=== PATIENT | female | born 1955 | race Caucasian/White ===

== ENCOUNTER → 2022-05-14 | Outpatient (CLI) | payer MEDICARE ==
--- NOTE | 2022-05-17 00:10 | DIREP ---
PROCEDURE:ABDOMINAL ULTRASOUND COMPARISON:None. INDICATIONS:HEPATIC STEATOSIS, ABD PAIN TECHNIQUE:High resolution sonographic examination was performed of the abdomen. FINDINGS: LIVER:Enlarged, measuring at least 20.0 cm craniocaudal. Diffusely increased in echogenicity and difficult to penetrate, consistent with hepatic steatosis. No focal hepatic lesion is identified. Hepatopetal flow in the portal vein. BILIARY:Small amount of dependent echogenic sludge in the gallbladder lumen. No shadowing gallstones. No gallbladder wall thickening or pericholecystic fluid. No biliary ductal dilatation. Common bile duct measures 3 mm. PANCREAS:Visualized portions of the head and body are unremarkable. The tail is obscured by bowel gas. RIGHT KIDNEY:Mildly enlarged, measuring 12.9 cm in length. Normal cortical thickness and echogenicity. No solid mass or hydronephrosis. LEFT KIDNEY:Mildly enlarged, measuring 12.6 cm in length. Normal cortical thickness and echogenicity. No solid mass or hydronephrosis. SPLEEN:Normal. Measures 10.6 cm craniocaudal. No focal splenic lesion. AORTA:Visualized portions are unremarkable. No aneurysm. 2.3 cm maximum diameter. INFERIOR VENA CAVA:Visualized portions are unremarkable. OTHER:Negative. No ascites. CONCLUSION: 1. Hepatomegaly with diffuse hepatic steatosis. No focal hepatic lesion. 2. Small amount of gallbladder sludge. No shadowing gallstones or sonographic evidence of acute cholecystitis. No biliary ductal dilatation. 3. Mild bilateral nephromegaly, which may be secondary to patient body habitus or diabetes. The kidneys are otherwise unremarkable. 4. Otherwise normal abdominal ultrasound. Dictated by: Pipo Ramos MD on 05/17/2022 at 00:04 AM
== END | disposition home or self-care (01) ==
LOC: RAD 09:13
PROVIDERS: ATTEND Internal Medicine Gastroenterology
DX: R16.0 Hepatomegaly, not elsewhere classified (principal); K76.0 Fatty (change of) liver, not elsewhere classified; E11.9 Type 2 diabetes mellitus without complications; R10.84 Generalized abdominal pain; E66.3 Overweight; Z12.11 Encounter for screening for malignant neoplasm of colon
CPT/HCPCS: 76700

== ENCOUNTER → 2022-06-02 | Outpatient (CLI) | payer MEDICARE ==
[~2022-06-02] MED LIST: LEXISCAN IV ONE
--- NOTE | 2022-06-02 15:59 | PCM.ECHO ---
APPROVED REPORT EXAM: Comprehensive 2D, Doppler, and color-flow Echocardiogram. Patient Location: OUT-PATIENT Indications Hypertension/HDD Chest Pain 2D Dimensions LVOT Diameter 2.24 (1.8-2.4cm) LVEF(%) 49.89 (>50%) M-Mode Dimensions RVDd 3.00 (2.1-3.2cm) Left Atrium(MM) 4.10 (2.5-4.0cm) IVSd 1.45 (0.7-1.1cm) Aortic Root 2.95 (2.2-3.7cm) LVDd 5.25 (4.0-5.6cm) Aortic Cusp Exc 1.60 (1.5-2.0cm) PWd 0.80 (0.7-1.1cm) MV EPSS 1.28 (<0.5cm) IVSs 1.85 cm FS (%) 32.15 % LVDs 3.55 (2.0-3.8cm) ESV(Teich) 53.34 ml PWs 1.55 cm LVEF(%) 59.95 (>50%) Volumes Biplane 2D LV Volumes Biplane 2D LA Volumes LVEDv A4C 106.88 mL LA ESV Index LVESv A4C 53.55 mL Aortic Valve AoV Peak Flip. 1.30 m/s AoV VTI 23.20 cm AO Peak GR. 6.90 mmHg AO Mean GR. 4.20 mmHg LVOT VTI 21.56 cm LVOT Peak Flip. 0.81 m/s MARY(VTI)/BSA 3.65 cm2/m2 MARY (VTI) 3.65 cm2 Mitral Valve MV E Velocity 0.50m/s MR Peak Gr. 10.75mmHg MV A Velocity 0.75m/s TDI Lateral E' P. V 0.07m/s Medial E' P. V 0.10m/s Pulmonary Valve PV Peak Velocity 0.80m/s PV Peak Grad. 2.80mmHg RVOT VTI 18.05cm Tricuspid Valve TR P. Velocity 1.95m/s RAP ESTIMATE 10.00mmHg TR Peak Gr. 15.28mmHg RVSP 25.28mmHg LEFT VENTRICLE The left ventricle is normal size. The left ventricular systolic function is normal. The left ventricular ejection fraction is within the normal range. There is normal left ventricular wall thickness. There is normal LV segmental wall motion. Mild diastolic dysfunction is present (impaired relaxation pattern). There is no ventricular septal defect visualized. No left ventricle thrombus noted on this study. LVEF is 65-70%. RIGHT VENTRICLE The right ventricle is normal size. The right ventricular systolic function is normal. There is normal right ventricular wall thickness. ATRIA The left atrium size is normal. The right atrium size is normal. The interatrial septum is intact with no evidence for an atrial septal defect. AORTIC VALVE The aortic valve is normal in structure. There is no aortic valvular stenosis. No aortic regurgitation is present. There is no aortic valvular vegetation. MITRAL VALVE The mitral valve is normal in structure. There is no mitral valve stenosis. Mild to moderate mitral regurgitation. There is no evidence of mitral valve vegetations. TRICUSPID VALVE The tricuspid valve is normal in structure. There is no tricuspid valve stenosis. Moderate tricuspid regurgitation. There is no tricuspid valve vegetations. PULMONIC VALVE Pulmonic valve is not well visualized. There is no pulmonic valvular stenosis. There is no pulmonic valvular regurgitation. GREAT VESSELS The aortic root is normal in size. Pulmonary artery is not well visualized. Aortic arch is not well visualized. IVC is not well visualized. PERICARDIUM There is no pericardial effusion. Other Information Study Quality: Fair <Conclusion> The left ventricular systolic function is normal. LVEF is 65-70%. Mild diastolic dysfunction is present (impaired relaxation pattern). Mild to moderate mitral regurgitation. Moderate tricuspid regurgitation. Electronically signed by : JOVITA SINGH. 06/02/2022 15:58:51
--- NOTE | 2022-06-03 00:23 | STRESS ---
DATE OF SERVICE: 06/02/2022 DICTATOR NAME: JOVITA SINGH DO DATE OF SERVICE: 06/02/2022 CARDIAC STRESS TEST INDICATION: Chest pain. FINDINGS: Baseline EKG shows normal sinus rhythm with a left anterior fascicular block and T-wave inversions in the anteroseptal leads suggestive of myocardial ischemia. Stress EKG shows normal sinus rhythm, unchanged from baseline. At the end of recovery, EKG shows normal sinus rhythm, unchanged from baseline. Baseline heart rate is 75 beats per minute and bal to 83 beats per minute during stress. At the end of recovery, the heart rate was 90 beats per minute. Baseline blood pressure is 147/89 and remained the same during stress. At the end of recovery, the blood pressure was 147/94. Blood pressure and heart rate were appropriate for stress. There were no significant symptoms noted during stress. There were no arrhythmias noted during stress. Anterior septal ischemia is noted baseline EKG and throughout stress and recovery. Nuclear images were obtained with a rest dose of 11.07 mCi technetium-99 sestamibi and a stress dose of 35.3 mCi technetium 99 sestamibi. Nuclear images reveal a moderate-sized area of reversible perfusion defect involving the anterior wall suggestive of myocardial ischemia. There is also a moderate-sized area of periinfarct ischemia involving the lateral wall. Left ventricular ejection fraction is 51%. EDV is 92 mL, ESV is 45 mL. The left ventricle is normal in size. Gated motion images showed normal wall motion across all segments of the left ventricle. TID is 1.3. There is no evidence of diaphragmatic attenuation artifact. IMPRESSION: 1. There is a moderate-sized area of reversible perfusion defect involving the anterior wall suggestive of myocardial ischemia. 2. There is a moderate-sized area of periinfarct ischemia involving the lateral wall. 3. This is an abnormal study. Recommend left heart catheterization. Sarah GARNETT D.O. DR: JED TID: [id number] RECEIPT: [id number]
== END | disposition home or self-care (01) ==
LOC: RAD 09:26 → EDUNIT# 10:00
PROVIDERS: ATTEND Internal Medicine Interventional Cardiology
DX: I08.1 Rheumatic disorders of both mitral and tricuspid valves (principal); I10 Essential (primary) hypertension; R07.9 Chest pain, unspecified; R06.02 Shortness of breath
CPT/HCPCS: 78452; 93306; 93017; J2785; A9500

== ENCOUNTER 2022-06-24 10:50 | Observation (INO) | payer MEDICARE ==
[2022-06-21 11:29] VITALS: BP 147/99
--- NOTE | 2022-06-21 12:12 | PCM.EKG ---
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
[2022-06-21 12:26] LABS: BASOPHIL # 0.1 10^3/uL (0.0-0.1); EOSINOPHIL # 0.3 10^3/uL (0.0-0.2); EOSINOPHIL % 4.3 % (0.0-5.0); LYMPHOCYTES # 1.81 10^3/uL1 (1.0-4.8); LYMPHOCYTES % 22.8 % (24.0-44.0); MEAN CORP HGB 29.7 pg (26-34); NEUTROPHIL # 4.8 10^3/uL (1.8-7.7); NEUTROPHILS % 59.8 % (41.0-85.0); RED CELL DISTRIBUTION WIDTH 13.1 % (11.5-14.5)
[2022-06-21 12:47] LABS: CARBON DIOXIDE 33.3 mmol/L (20.0-32)
[~2022-06-24] VITALS: Ht 170.2 cm; Wt 92.1 kg
[2022-06-24 10:50] VITALS: BP 157/102
[~2022-06-24 10:50] MED LIST changes: +ALBU1.25 NEB; +ASPI325T14 PO; +CARV3.12 PO; +CLOP75TA PO; +FENO145T17 PO; +FLAX100029 PO; +GLIM1TAB7 PO; +INUL2TAB4 PO; -LEXISCAN IV ONE; +MAGN400C PO; +METF500T17 PO; +NITR0.4T26 SL; +SUBLIMAZE ONE; +VERSED ONE; +XYLOCAINE ONE
[2022-06-24] MEDS: NS 1000ML 1,000 ML IV SCH ×2 (11:05→16:00)
[2022-06-24] MEDS ORDERED: NITROSTAT SL ONE (16:00)
[2022-06-24] MEDS ORDERED: APRESOLINE ONE (16:00)
[2022-06-24] MEDS ORDERED: VASOTEC IV ONE (16:02)
[2022-06-24] MEDS ORDERED: CARDENE-NACL 20 MG/200 ML SOLN 200 ML IV ONE (16:04)
[2022-06-24] MEDS ORDERED: HEPARIN ONE (16:20)
[2022-06-24] MEDS ORDERED: ASPIRIN ONE (17:05)
[2022-06-24] MEDS ORDERED: PLAVIX ONE (17:05)
[2022-06-24 17:40] VITALS: BP 164/90
--- NOTE | 2022-06-24 18:30 | NUR ---
admit note pt to rm 331 at 1740, recd report and assumed care. heart cath site dry and intact. VS taken, see special vs sheet. pt to remain flat until 1910. attempted to use bedpan and unable to void. chon care given
[2022-06-24] MEDS ORDERED: NITROSTAT SL PRN (23:30)
[2022-06-25 01:08] VITALS: BP 120/61
[2022-06-25] MEDS: NS 1000ML 1,000 ML IV SCH (02:00)
--- NOTE | 2022-06-25 02:47 | [facility] ---
DATE OF SERVICE: 06/24/2022 DICTATOR NAME: JOVITA SINGHDO CARDIAC CATHETERIZATION REPORT INDICATIONS: Abnormal cardiac stress test. This is a 66-year-old female who was evaluated in the outpatient setting where she underwent cardiac ischemic workup. Cardiac ischemic workup was noted to be abnormal and so she was set up for left heart catheterization after informed consents were obtained, PROCEDURES PERFORMED: * Severe stenosis (80-90%) of the proximal left anterior descending artery, status post successful percutaneous coronary intervention with a Resolute David 4.0 x 18 mm drug-eluting stent. * Severe stenosis (99%) of the distal right coronary artery, status post successful percutaneous coronary intervention with a Resolute [place] 4.5 x 26 mm drug-eluting stent. * Severe stenosis (80%) of the mid right coronary artery, status post successful percutaneous coronary intervention with a Resolute [place] 4.5 x 15 mm drug-eluting stent. * Selective coronary angiography. * Left ventriculography. * Hemostasis established using a 6-Liberian Angio-Seal. DESCRIPTION OF PROCEDURE: Access was obtained using a 4-Liberian micropuncture sheath to cannulate the right common femoral artery. The 4-Liberian sheath was then upsized to a 6-Liberian regular short sheath. Diagnostic angiography was then carried out using a Marisabel left catheter to engage the left main. The left main was noted to be angiographically normal. It bifurcates into a left anterior descending artery and the left circumflex artery. The left anterior descending artery is noted to have a proximal 80-90% lesion. It runs in the interventricular groove reaching the apex to form a type 2 LAD. It gives rise to 4 diagonal branches that are noted to have mild luminal irregularities. The remaining segments of the LAD is noted to have mild luminal irregularities. The left circumflex artery is noted to be codominant and with mild luminal irregularities. It gives rise to 3 obtuse marginal branches that are noted to have mild luminal irregularities. The Marisabel left catheter was then exchanged for a Marisabel right catheter, which was used to engage the RCA. RCA angiography revealed a dominant RCA with a 99% distal lesion and an 80% mid lesion. The RCA bifurcates distally to a right posterior descending artery and a right posterolateral artery. Both branches are noted to have mild luminal irregularities. The Marisabel right catheter was then exchanged for a pigtail catheter, which was used to cross the aortic valve into the left ventricle. Left ventriculography was performed. LVEF was noted to be 65%. LVEDP was noted to be 12. Upon pullback of the pigtail catheter, there was no gradient across the aortic valve. I then elected to first intervene in the right coronary artery. Initial attempt to use the WRP guide catheter proved difficult due to poor support. I then exchanged WRP catheter for an Amplatz left 1 catheter, which was used to engage the RCA. A Runthrough wire was then introduced into the RCA crossing the lesions in the mid to distal RCA. Predilation was then carried out of the mid to distal RCA lesion using a Euphora 2.0 x 12 mm compliant balloon followed by a Euphora 3.0 x 50 mm compliant balloon. A Resolute David 4.5 x 26 mm drug-eluting stent was then deployed on the distal RCA lesion. This was then followed by deployment of a Resolute [place] 4.5 x 15 mm drug-eluting stent on the mid RCA lesion. The stent balloon was then used to post-dilate the overlapping stent segment. Both stents were noted to be well opposed to the wall of the vessel with 0% residual stenosis. AVA 3 flow was maintained in the RCA. I then turned my attention to the left anterior descending artery. Using an EBU 3.5 guide catheter, the left main was successfully engaged. The Runthrough wire was then introduced into the LAD. The lesion in the proximal LAD was then treated by primary stenting using a Resolute [place] 4.0 x 18 mm drug-eluting stent. The stent was then postdilated using a 4.5 x 12 mm noncompliant balloon. The stent was noted to be well opposed to the wall of the vessel with 0% residual stenosis. The wire and the guide catheter was then subsequently removed and hemostasis was then established using a 6-Liberian Angio-Seal. The patient tolerated the procedure well. There were no complications. AVA 3 flow was maintained in the LAD as well as the RCA arteries. IMPRESSION: * Severe stenosis (80-90%) of the left anterior descending artery, status post successful percutaneous coronary intervention with a drug-eluting stent. * Severe stenosis (99%) of the distal RCA, status post successful percutaneous coronary intervention with a drug-eluting stent. * Severe stenosis (80%) of the mid RCA, status post successful percutaneous coronary intervention with a drug-eluting stent. * Selective coronary angiography. * Left ventriculography. * Left ventricular ejection fraction of 65%. * Left ventricular end-diastolic pressure of 12. * Hemostasis established using a 6-Liberian Angio-Seal. RECOMMENDATIONS: The patient will be started on dual antiplatelet therapy as well as statin therapy. Lifestyle modification factors have been strongly advised. She will be kept overnight for anticipated discharge in the morning. She has been instructed to follow up with me in the clinic in 2 weeks. Sarah GARNETT D.O. DR: PRASHANT ROPER: [phone] RECEIPT: [id number]
[2022-06-25 04:46] VITALS: BP 144/73
[2022-06-25 09:00] VITALS: BP 135/86
[2022-06-25] MEDS ORDERED: COREG PO SCH (09:00)
[2022-06-25] MEDS ORDERED: GLUCOPHAGE PO SCH (09:00)
[2022-06-25] MEDS ORDERED: TRICOR PO SCH (09:00)
[2022-06-25] MEDS ORDERED: AMARYL PO SCH ×2 (09:00)
[2022-06-25] MEDS ORDERED: PLAVIX PO SCH (09:00)
[2022-06-25] MEDS ORDERED: MAG-OX PO SCH (09:00)
[2022-06-25] MEDS ORDERED: ASPIRIN EC PO SCH (09:00)
[2022-06-25] MEDS ORDERED: ASPI-1007 PO (09:23)
[2022-06-25] MEDS ORDERED: ATOR40TA PO (09:23)
--- NOTE | 2022-06-25 09:26 | PRM.DC ---
Discharge Summary Date of Discharge: Jun 25, 2022 Time of Request to Discharge: 09:24 Hospital Course This is a 66-year-old female who was evaluated in the outpatient setting where she underwent cardiac ischemic workup. Cardiac ischemic workup was noted to be abnormal and so she was set up for left heart catheterization after informed consents were obtained. Left heart catheterization performed yesterday: 1. Severe stenosis (80-90%) of the proximal left anterior descending artery, status post successful percutaneous coronary intervention with a Resolute [place] 4.0 x 18 mm drug-eluting stent. 2. Severe stenosis (99%) of the distal right coronary artery, status post successful percutaneous coronary intervention with a Resolute David 4.5 x 26 mm drug-eluting stent. 3. Severe stenosis (80%) of the mid right coronary artery, status post successful percutaneous coronary intervention with a Resolute David 4.5 x 15 mm drug-eluting stent. 4. Selective coronary angiography. 5. Left ventriculography. 6. Hemostasis established using a 6-Belarusian Angio-Seal. General: Alert, Oriented X3, Cooperative HEENT: Atraumatic, PERRLA, EOMI Neck: Supple, No JVD, No thyromegaly Lungs: Clear to auscultation, Normal air movement Heart: Regular rate, Normal S1, Normal S2 Abdomen: Normal bowel sounds, Soft, No tenderness Extremities: No clubbing, No cyanosis, No edema Neuro: Normal gait, Normal speech, Strength at 5/5 X4 ext Scheduled Albuterol Sulfate (Albuterol Sulfate), 1 VIAL NEB Q6, (Reported) Aspirin (Lo-Dose Aspirin Ec), 81 MG PO DAILY Atorvastatin 40MG (Lipitor 40MG), 40 MG PO HS Carvedilol 3.125MG (Coreg 3.125MG), 1 TAB PO BID, (Reported) Clopidogrel Bisulfate (Clopidogrel), 1 TAB PO DAILY, (Reported) Fenofibrate Nanocrystallized (Fenofibrate), 1 TAB PO DAILY, (Reported) Flaxseed Oil (Flaxseed), 1,000 MG PO BID, (Reported) Glimepiride (Glimepiride), 1 TAB PO DAILY, (Reported) Inulin (Fiber Gummies), 4 TAB PO BID, (Reported) Magnesium Oxide (Magnesium), 1 CAP PO BID, (Reported) Metformin Hcl (Metformin Hcl), 2 TAB PO BID, (Reported) Nitroglycerin (Nitroglycerin), 1 TAB SL PRN, (Reported) Discontinued Medications Aspirin (Aspirin), 1 TAB PO DAILY, (Reported) Discontinued Reason: Discontinue Sepsis Evaluation @ Discharge 06/25/22 04:48 Review of Systems Constitutional: denies no symptoms reported, denies see HPI, denies chills, denies diaphoresis, denies fever, denies malaise, denies weakness, denies other EENTM: denies no symptoms reported, denies see HPI, denies eye pain, denies blurred vision, denies tearing, denies double vision, denies ear pain, denies ear discharge, denies nose pain, denies nose congestion, denies throat pain, denies throat swelling, denies mouth pain, denies mouth swelling, denies other Respiratory: denies no symptoms reported, denies see HPI, denies cough, denies orthopnea, denies shortness of breath, denies stridor, denies wheezing, denies other Cardiovascular: denies no symptoms reported, denies see HPI, denies chest pain, denies edema, denies palpitations, denies syncope, denies other Gastrointestinal: denies no symptoms reported, denies see HPI, denies abdominal pain, denies constipation, denies diarrhea, denies nausea, denies vomiting, denies other Musculoskeletal: denies no symptoms reported, denies see HPI, denies back pain, denies gout, denies joint pain, denies joint swelling, denies muscle pain, denies muscle stiffness, denies neck pain, denies other Psychiatric/Neurological: denies no symptoms reported, denies see HPI, denies anxiety, denies depressed, denies emotional problems, denies headache, denies numbness, denies paresthesia, denies pre-existing deficit, denies seizure, denies tingling, denies tremors, denies weakness, denies other Plan Assessment * Severe stenosis (80-90%) of the left anterior descending artery, status post successful percutaneous coronary intervention with a drug-eluting stent. * Severe stenosis (99%) of the distal RCA, status post successful percutaneous coronary intervention with a drug-eluting stent. * Severe stenosis (80%) of the mid RCA, status post successful percutaneous coronary intervention with a drug-eluting stent. * Selective coronary angiography. * Left ventriculography. * Left ventricular ejection fraction of 65%. * Left ventricular end-diastolic pressure of 12. * Hemostasis established using a 6-Belarusian Angio-Seal. RECOMMENDATIONS: The patient will be started on dual antiplatelet therapy as well as statin therapy. Lifestyle modification factors have been strongly advised. The patient will be discharged home today. She has been instructed to follow up with me in 1-2 weeks PAVAN VEGA APRN, NP Jun 25, 2022 09:26 JOVITA SINGH DO Jun 25, 2022 18:25
[2022-06-25] MEDS ORDERED: TYLENOL PO PRN (09:30)
--- NOTE | 2022-06-25 10:51 | NUR ---
ROOM AIR CHALLENGE - Umer was on room air when RT arrived at 1035am; umer stated she took it off to blow her nose; Spo2 at that time was 84%, hr 73, rr 18; pat had an spo2 of 84% on room air while at rest; pat was placed back on 2lpm nc, spo2 bal to 91% Addendum: 06/25/22 at 1053 by Latonia Reeves RRT, Contract RT Amended: Links added.
[2022-06-25 15:25] VITALS: BP 144/73
[2022-06-25] MEDS ORDERED: LIPITOR PO SCH (21:00)
== END 2022-06-25 15:25 | disposition home or self-care (01) ==
LOC: SDC 10:50 → INTOOBSV 17:35 → MS 17:35
PROVIDERS: ADMIT Internal Medicine Interventional Cardiology; ATTEND Internal Medicine Interventional Cardiology
DX: I25.10 Atherosclerotic heart disease of native coronary artery without angina pectoris (principal); I22.2 Subsequent non-ST elevation (NSTEMI) myocardial infarction; I70.213 Atherosclerosis of native arteries of extremities with intermittent claudication, bilateral legs; E11.59 Type 2 diabetes mellitus with other circulatory complications; I87.2 Venous insufficiency (chronic) (peripheral); E78.5 Hyperlipidemia, unspecified; E66.9 Obesity, unspecified; F41.8 Other specified anxiety disorders; J43.9 Emphysema, unspecified; I10 Essential (primary) hypertension; E78.00 Pure hypercholesterolemia, unspecified; F43.10 Post-traumatic stress disorder, unspecified; F17.200 Nicotine dependence, unspecified, uncomplicated; Z79.899 Other long term (current) drug therapy; Z79.82 Long term (current) use of aspirin
CPT/HCPCS: 80053; 85025; 36415; 85610; 85730; 93005; 93458; 82948; 99153; 99152; J7030 ×2; J1644 ×2; C1894 ×3; C1769 ×2; J0360; J2250; J3010; C9600; C1760; Q9967; G0378 ×2; J3490 ×2; C1887

== ENCOUNTER 2022-06-30 07:34 | Emergency (ER) | payer MEDICARE ==
[2022-06-30 07:34] VITALS: BP 158/112
[~2022-06-30 07:34] MED LIST changes: +ASPI-1007 PO; +ATOR40TA PO; -SUBLIMAZE ONE; -VERSED ONE; -XYLOCAINE ONE
[2022-06-30] MEDS ORDERED: MORPHINE SULFATE IV STA ×2 (07:48→10:53)
[2022-06-30] MEDS ORDERED: TRANDATE IV ONE (07:55)
[2022-06-30] MEDS ORDERED: MORPHINE SULFATE ONE ×2 (07:55→10:52)
[2022-06-30] MEDS ORDERED: ZOFRAN ONE (07:55)
[2022-06-30] MEDS ORDERED: AFRIN- Non-Preferred NS ONE (07:57)
[2022-06-30] MEDS ORDERED: TRANDATE IV PRN (08:00)
[2022-06-30] MEDS ORDERED: AFRIN NS ONE (08:00)
[2022-06-30] MEDS ORDERED: ZOFRAN IV PRN (08:00)
[2022-06-30 08:12] LABS: MEAN CORP HGB 30.1 pg (26-34); RED CELL DISTRIBUTION WIDTH 13.1 % (11.5-14.5)
--- NOTE | 2022-06-30 08:16 | ER.PDOC ---
General Chief Complaint: Requesting Medical Care Stated Complaint: NOSEBLEED TRAVEL OUT OF US: No Time seen by MD: 07:45 Source: patient Exam Limitations: no limitations History of Present Illness Initial Comments 66-year-old female comes here with significant nasal bleeding. The nasal bleeding is more from the left nostril but it is taking place on the right as well. No fever and no chills. Distant history of tobacco abuse. Patient is on Plavix. The patient denies any previous history of nasal bleeding. She she denies any trauma. Denies any nose picking. No other complaint. Symptoms are severe and acute and progressive. Stopped by leaning forward also pressure on her nose. Allergies: Coded Allergies: codeine (Verified Allergy, Intermediate, unknown, 06/21/22) Home Meds Active Scripts Aspirin (LO-DOSE ASPIRIN EC) 81 Mg Tablet.dr, 81 MG PO DAILY for 30 Days, #30 Prov:PAVAN VEGA APRN MANUSCRIPT READER 06/25/22 Atorvastatin 40MG (LIPITOR 40MG) 40 Mg Tablet, 40 MG PO HS for 30 Days, #30 TAB Prov:PAVAN VEGA APRN MANUSCRIPT READER 06/25/22 Reported Medications Inulin (Fiber Gummies) 2 Gram Tab.chew, 4 TAB PO BID for 30 Days, #60 TAB 0 Refills 06/21/22 Flaxseed Oil (FLAXSEED) 1,000 Mg Capsule, 1000 MG PO BID, CAPSULE 06/21/22 Albuterol Sulfate (ALBUTEROL SULFATE) 1.25 Mg/3 Ml Vial.neb, 1 VIAL NEB Q6, #150 MILLILITER 06/21/22 Metformin Hcl (METFORMIN HCL) 500 Mg Tablet, 2 TAB PO BID, #60 TAB 3 Refills 06/21/22 Glimepiride (GLIMEPIRIDE) 1 Mg Tablet, 1 TAB PO DAILY, #30 TAB 5 Refills 06/21/22 Clopidogrel Bisulfate (CLOPIDOGREL) 75 Mg Tablet, 1 TAB PO DAILY, #90 TAB 1 Refill 06/21/22 Magnesium Oxide (MAGNESIUM) 400 Mg Capsule, 1 CAP PO BID for 30 Days, #60 CAP 0 Refills 06/21/22 Fenofibrate Nanocrystallized (FENOFIBRATE) 145 Mg Tablet, 1 TAB PO DAILY, #30 TAB 5 Refills 06/21/22 Carvedilol 3.125MG (COREG 3.125MG) 3.125 Mg Tablet, 1 TAB PO BID, #180 TAB 1 Refill 06/21/22 Nitroglycerin (NITROGLYCERIN) 0.4 Mg Tab.subl, 1 TAB SL PRN for chest pain, #25 TAB 0 Refills 1st sign of attack; may repeat every 5 mins; if pain persists after 3 in 15 min, medical attention is recommended 06/21/22 Discontinued Reported Medications Aspirin (ASPIRIN) 325 Mg Tablet, 1 TAB PO DAILY, #30 TAB 5 Refills 06/21/22 Past Medical History Medical History: coronary artery disease, heart attack, hypertension Surgical History: cardiac cath LMP (females 10-50): N/A Not applicalbe Family History Significant Family History: no pertinent family hx Social History Smoking: quit greater than 1 year Alcohol Use: none Drug Use: marijuana Reviewed Nursing Reviewed: Vital Signs, Abn. Noted, Nursing Assessment Review of Systems Constitutional: denies no symptoms reported, denies see HPI, denies chills, de nies diaphoresis, denies fever, denies malaise, denies weakness, denies other EENTM: denies no symptoms reported, denies see HPI, denies eye pain, denies blurred vision, denies tearing, denies double vision, denies ear pain, denies ea r discharge, denies nose pain, denies nose congestion, denies throat pain, denies throat swelling, denies mouth pain, denies mouth swelling, denies other Respiratory: denies no symptoms reported, denies see HPI, denies cough, denies orthopnea, denies shortness of breath, denies stridor, denies wheezing, denies other Cardiovascular: denies no symptoms reported, denies see HPI, denies chest pain, denies edema, denies palpitations, denies syncope, denies other Gastrointestinal: denies no symptoms reported, denies see HPI, denies abdominal pain, denies constipation, denies diarrhea, denies nausea, denies vomiting, denies other Genitourinary: denies no symptoms reported, denies see HPI, denies discharge, denies dysuria, denies frequency, denies hematuria, denies pain, denies other Musculoskeletal: denies no symptoms reported, denies see HPI, denies back pain, denies gout, denies joint pain, denies joint swelling, denies muscle pain, denies muscle stiffness, denies neck pain, denies other Skin: denies no symptoms reported, denies see HPI, denies change in color, denies change in hair/nails, denies dryness, denies lesions, denies lumps, denies rash, denies other Psychiatric/Neurological: denies no symptoms reported, denies see HPI, denies anxiety, denies depressed, denies emotional problems, denies headache, denies numbness, denies paresthesia, denies pre-existing deficit, denies seizure, denies tingling, denies tremors, denies weakness, denies other Hematologic/Lymphatic: denies no symptoms reported, denies see HPI, denies anemia, denies blood clots, denies easy bleeding, denies easy bruising, denies swollen glands, denies other Immunological/Allergic: denies no symptoms reported, denies see HPI, denies food allergy, denies grass allergy, denies mold allergy, denies pollen allergy, denies HIV/AIDS, denies transplant All Other Systems: Reviewed and Negative Physical Exam General Appearance: Anxious, Moderate Distress EENT: eyes nml inspection, epistaxis, other (Significant epistaxis. Left more than right. Acute. Bright red blood.) Neck: Non-Tender, Full Range of Motion Respiratory: chest non-tender, lungs clear, normal breath sounds, no respiratory distress, no accessory muscle use CVS: reg rate & rhythm, no murmur, no gallop, pulses nml, nml capillary refill Gastrointestinal: Normal Bowel Sounds, No Organomegaly, No Pulsatile Mass, Non Tender Back: Normal Inspection, No CVA Tenderness, No Vertebral Tenderness Neurologic/Psychiatric: legend maker II-XII NML as Tested, No Motor/Sensory Deficits, Alert, Normal Mood/Affect Skin: Normal Color, Warm/Dry Lymphatic: No Adenopathy Results/Orders Results/Orders Orders - JASON HOPPER MD Cbc W/O Diff (06/30/22 07:46) Basic Metabolic Panel (06/30/22 07:46) PT (06/30/22 07:46) Partial Thromboplastin Time. (06/30/22 07:46) Labetalol Hcl (Trandate) (06/30/22 08:00) Morphine Sulfate (Morphine Sulfate) (06/30/22 07:48) Ondansetron Hcl/Pf (Zofran) (06/30/22 08:00) Ondansetron Hcl/Pf (Zofran) (06/30/22 07:55) Labetalol Hcl (Trandate) (06/30/22 07:55) Morphine Sulfate (Morphine Sulfate) (06/30/22 07:55) Oxymetazoline Hcl (Afrin) (06/30/22 08:00) Oxymetazoline Hcl (Afrin- Non-Preferred) (06/30/22 07:57) Ct Facial Bones Wo Contrast (06/30/22 08:19) Diph,Pertuss(Acell),Tet Vac/Pf (Boostrix (06/30/22 08:30) Diph,Pertuss(Acell),Tet Vac/Pf (Boostrix (06/30/22 08:38) Amoxicillin/Potassium Clav (Augmentin 87 (06/30/22 09:30) Amoxicillin/Potassium Clav (Augmentin 87 (06/30/22 09:31) Vital Signs Date Time Temp Pulse Resp B/P (MAP) Pulse Ox O2 Delivery O2 Flow Rate FiO2 06/30/22 07:34 98.7 64 18 06/30/22 07:34 98.7 69 18 88 06/30/22 07:34 98.7 64 18 158/112 (127) 88 Room Air* 0 21 06/25/22 09:34 73 Administered Medications Medications (Trade) Dose Ordered Sig/Marco Route PRN Reason Start Time Stop Time Status Last Admin Dose Admin Amoxicillin/ Clavulanate Potassium (Augmentin 875mg) 1 each BID ONCE PO 06/30/22 09:30 06/30/22 09:31 DC 06/30/22 09:36 1 EACH Diphtheria/ Tetanus/Acell Pertussis (Boostrix) 0.5 ml ONCE ONCE IM 06/30/22 08:30 06/30/22 08:31 DC 06/30/22 08:45 0.5 ML Labetalol HCl (Trandate) 20 mg Q4H PRN IV HYPERTENSION 06/30/22 08:00 07/30/22 07:59 06/30/22 08:07 20 MG Morphine Sulfate (Morphine Sulfate) 4 mg STAT STAT IV 06/30/22 07:48 06/30/22 07:50 DC 06/30/22 08:05 4 MG Ondansetron HCl (Zofran) 4 mg Q4H PRN IV NAUSEA / VOMITING 06/30/22 08:00 07/30/22 07:59 06/30/22 08:07 4 MG Oxymetazoline HCl (Afrin) 3 sprays OT ONCE NS 06/30/22 08:00 06/30/22 08:01 DC 06/30/22 08:07 3 SPRAYS Laboratory Tests Test 06/30/22 08:06 White Blood Count 9.2 10^3/uL (4.5-11.0) Red Blood Count 5.82 10^6/uL (4.00-5.20) H Hemoglobin 17.5 g/dL (12.0-15.0) H Hematocrit 56.0 % (36.0-46.0) H Mean Corpuscular Volume 96.2 fL (78-100) Mean Corpuscular Hemoglobin 30.1 pg (26-34) Mean Corpuscular Hemoglobin Concent 31.3 g/dL (33-36.5) L Red Cell Distribution Width 13.1 % (11.5-14.5) Platelet Count 321 10^3/uL (150-400) Mean Platelet Volume 9.6 fL (7.8-11.0) Prothrombin Time 10.4 SEC (9.1-11.5) Prothrombin Time INR (Non-Therap) 1.0 Activated Partial Thromboplast Time 23.2 SEC (22.5-33.1) Sodium Level 137 mmol/L (132-145) Potassium Level 4.5 mmol/L (3.6-5.2) Chloride Level 103.0 mmol/L (96-109) Carbon Dioxide Level 30.2 mmol/L (20.0-32) Glucose Level 184 mg/dL (70-110) H Blood Urea Nitrogen 22 mg/dL (7-18) H Creatinine 0.82 mg/dL (0.59-1.40) Calcium Level 9.2 mg/dL (8.4-10.5) Anion Gap 8.3 Estimated GFR () 84.7 (>/=60) Est GFR (CKD-EPI)(Non-Afr Moroccan) 70.0 (>/=60) BUN/Creatinine Ratio 26.0 Progress Progress Nose bleeding has stopped after by nostril tampons applied. A friend's right applied also. Tetanus shot given. Augmentin will be given. Will need ENT for Nasal mass evaluation. Discharge home. ROCEDURE:CT MAXILLOFACIAL W/O CONTRAST COMPARISON:None. INDICATIONS:new onset nasal bleeding, old HX of tobacco TECHNIQUE:Axial images were obtained through the facial bones with coronal reconstructions from source images. FINDINGS: GLOBES:Normal. EXTRAOCULAR MUSCLES:Normal. OPTIC NERVES:Normal. LACRIMAL GLANDS:Normal. MAXILLARY SINUSES:Minimal left maxillary sinus mucosal thickening and small air-fluid level. ETHMOID SINUSES:Normal. SPHENOID SINUSES:Mild left anterior debris and small air-fluid level. FRONTAL SINUSES:Normal. OSTIOMEATAL COMPLEXES:Patent. NASAL SEPTUM:Leftward nasal septal deviation with left-sided spur and mucosal apposition. OTHER:Soft tissue density in the left nares adjacent to middle and inferior turbinates. No osseous destructive changes. CONCLUSION: 1. Debris/hemorrhage in the region of the left turbinates. Mass not totally excluded. 2. Small air-fluid levels in the left maxillary and left sphenoid sinuses. ER DEPART Departure Time of Disposition: 09:17 Disposition: 01 HOME / SELF CARE / HOMELESS Impression: Primary Impression: Epistaxis Additional Impression: Nasal cavity mass Condition: Improved Referrals: PCP,UNKNOWN (PCP) PRIMARY CARE PROVIDER Additional Instructions: Sleep at 30-45 degree angle over the next few days Take all prescribed medication as directed. Nasal tampon comes out in 48 hours See your doctor tomorrow morning You will be set up for appointment with ENT Return to the hospital if any new symptoms develop Duration or Time Spent with Pa: 45 Problem Qualifiers JASON HOPPER MD Jun 30, 2022 08:16
[2022-06-30 08:25] LABS: CARBON DIOXIDE 30.2 mmol/L (20.0-32)
[2022-06-30] MEDS ORDERED: BOOSTRIX IM ONE ×2 (08:30→08:38)
--- NOTE | 2022-06-30 09:12 | DIREP ---
PROCEDURE:CT MAXILLOFACIAL W/O CONTRAST COMPARISON:None. INDICATIONS:new onset nasal bleeding, old HX of tobacco TECHNIQUE:Axial images were obtained through the facial bones with coronal reconstructions from source images. FINDINGS: GLOBES:Normal. EXTRAOCULAR MUSCLES:Normal. OPTIC NERVES:Normal. LACRIMAL GLANDS:Normal. MAXILLARY SINUSES:Minimal left maxillary sinus mucosal thickening and small air-fluid level. ETHMOID SINUSES:Normal. SPHENOID SINUSES:Mild left anterior debris and small air-fluid level. FRONTAL SINUSES:Normal. OSTIOMEATAL COMPLEXES:Patent. NASAL SEPTUM:Leftward nasal septal deviation with left-sided spur and mucosal apposition. OTHER:Soft tissue density in the left nares adjacent to middle and inferior turbinates. No osseous destructive changes. CONCLUSION: 1. Debris/hemorrhage in the region of the left turbinates. Mass not totally excluded. 2. Small air-fluid levels in the left maxillary and left sphenoid sinuses. Dictated by: Ban Maldonado MD on 06/30/2022 at 09:04 AM
[2022-06-30] MEDS ORDERED: AUGMENTIN 875MG PO ONE (09:30)
[2022-06-30] MEDS ORDERED: AUGMENTIN 875MG ONE (09:31)
[2022-06-30] MEDS ORDERED: TRANDATE IV STA (10:53)
[2022-06-30] MEDS ORDERED: PROCARDIA PO STA (10:53)
[2022-06-30 12:00] VITALS: BP 132/80
--- NOTE | 2022-06-30 13:30 | NUR ---
Rx CHANGE AFTER DISCHARGE SPOKE WITH PT'S DAUGHTER, PT WAS PRESCRIBED TYLENOL #3-PT IS ALLERGIC TO CODEINE. NEW ORDERS RECEIVED FROM DR HOPPER FOR DIFFERENT PAIN MEDICATION ULTRA 50mg PO Q4 PRN PAIN TYLENOL 1,000mg PO Q6 PRN PAIN THIS NURSE CALLED IN NEW Rx TO [facility] IN [place], SPOKE WITH GREG MONTELONGO-PHARMACIST. NEW MEDICATION REPEATED BACK TO THIS NURSE BY GREG.
== END 2022-06-30 12:00 | disposition home or self-care (01) ==
LOC: EDBD 07:34 → ER 07:34
DX: R04.0 Epistaxis (principal); J34.9 Unspecified disorder of nose and nasal sinuses; I16.0 Hypertensive urgency; I10 Essential (primary) hypertension; I25.10 Atherosclerotic heart disease of native coronary artery without angina pectoris; F12.90 Cannabis use, unspecified, uncomplicated; I25.2 Old myocardial infarction; Z88.5 Allergy status to narcotic agent
CPT/HCPCS: 99285; 96374; 70486; 96375; 90471; 90715; 85027; 36415; 80048; 85610; 85730; 30901; 96376; J2405; J3490

== ENCOUNTER → 2022-07-16 | Outpatient (CLI) | payer MEDICARE ==
--- NOTE | 2022-07-17 01:49 | PRP ---
DATE OF PROCEDURE: 07/16/2022 DICTATOR NAME: JOVITA SINGH DO VENOUS MAPPING ULTRASOUND INDICATION: Venous insufficiency. RIGHT LOWER EXTREMITY: The right greater saphenous vein measures 4 mm in its maximum diameter. There is no evidence of significant reflux. The right small saphenous vein measures 2 mm in its maximum diameter. There is no evidence of significant reflux. There is no evidence of deep venous thrombosis in the right lower extremity. LEFT LOWER EXTREMITY: The left greater saphenous vein measures 6 mm in its maximum diameter. Significant reflux is noted in the left greater saphenous vein with maximum reflux of 0.5 seconds. The left small saphenous vein measures 3 mm in its maximum diameter. There is no evidence of significant reflux. There is no evidence of DVT in the left lower extremity. IMPRESSION: * The left greater saphenous vein is normal sized and displays pathological reflux. * The bilateral SSV is normal sized and does not show significant reflux. * The right greater saphenous vein is normal sized and does not show significant reflux. * There is no evidence of deep venous thrombosis in the bilateral lower extremities. RECOMMENDATIONS: Conservative measures including the use of compression stockings, leg elevation and exercise are recommended for the left lower extremity. Sarah GARNETT D.O. DR: KA/PRA TID: [id number] RECEIPT: [id number]
== END | disposition home or self-care (01) ==
LOC: EDUNIT# 06-07 15:00 → RAD 13:31
PROVIDERS: ATTEND Nurse Practitioner Family
DX: I87.2 Venous insufficiency (chronic) (peripheral) (principal)
CPT/HCPCS: 93970

== ENCOUNTER → 2022-07-19 | Outpatient (CLI) | payer MEDICARE ==
--- NOTE | 2022-07-20 05:23 | PRP ---
DATE OF PROCEDURE: 07/19/2022 DICTATOR NAME: JOVITA SINGH DO ARTERIAL DOPPLER ULTRASOUND OF THE BILATERAL LOWER EXTREMITIES INDICATION: Intermittent claudication. RIGHT LOWER EXTREMITY: The right common femoral artery has a peak systolic velocity of 106.5 cm per second with triphasic waveforms seen. The right profunda femoris artery has a peak systolic velocity of 60 cm per second with biphasic waveforms seen. The right SFA has triphasic waveforms seen throughout with a peak systolic velocity of 97 cm per second. The right popliteal artery has triphasic waveforms seen throughout with a peak systolic velocity of 82 cm per second. The right posterior tibial artery has triphasic waveforms with a peak systolic velocity of 106 cm per second. The right anterior tibial artery has triphasic waveforms with a peak systolic velocity of 95 cm per second. The right lower extremity ankle-brachial index is 1.0. LEFT LOWER EXTREMITY: The left common femoral artery has a peak systolic velocity of 125 cm per second with triphasic waveforms seen. The left profunda femoris artery has monophasic waveforms with a peak systolic velocity of 66 cm per second. The left SFA has triphasic waveforms with a peak systolic velocity of 98 cm per second. The left popliteal artery has triphasic waveforms with a peak systolic velocity of 76.8 cm per second. The left anterior tibial artery has triphasic waveforms with a peak systolic velocity of 107.5 cm per second. The left posterior tibial artery has triphasic waveforms with a peak systolic velocity of 93 cm per second. The left lower extremity ankle-brachial index is 1.1. IMPRESSION: * There is no evidence of hemodynamically significant stenosis in the right lower extremity. * There is no evidence of hemodynamically significant stenosis in the left lower extremity. * Bilateral ABIs are within normal limits. Sarah GARNETT D.O. DR: ULICES TID: [id number] RECEIPT: [id number]
== END | disposition home or self-care (01) ==
LOC: EDUNIT# 05-25 15:00 → RAD 13:20
PROVIDERS: ATTEND Nurse Practitioner Family
DX: I70.213 Atherosclerosis of native arteries of extremities with intermittent claudication, bilateral legs (principal)
CPT/HCPCS: 93922; 93925

== ENCOUNTER → 2023-10-18 | Outpatient (CLI) | payer MEDICARE ==
[~2023-10-18] MED LIST changes: +LEXISCAN IV ONE
== END | disposition home or self-care (01) ==
LOC: RAD 09:34
PROVIDERS: ATTEND Nurse Practitioner Family
DX: I08.1 Rheumatic disorders of both mitral and tricuspid valves (principal); R07.9 Chest pain, unspecified; I10 Essential (primary) hypertension
CPT/HCPCS: 78452; 93306; 93017; A9500

== ENCOUNTER → 2024-01-23 | Outpatient (CLI) | payer MEDICARE ==
[~2024-01-23] MED LIST changes: +GLIM1TAB PO; -GLIM1TAB7 PO; -LEXISCAN IV ONE
== END | disposition home or self-care (01) ==
LOC: RAD 08:51
PROVIDERS: ATTEND Specialist
DX: I07.1 Rheumatic tricuspid insufficiency (principal); I11.0 Hypertensive heart disease with heart failure; I50.32 Chronic diastolic (congestive) heart failure; R06.02 Shortness of breath; I25.10 Atherosclerotic heart disease of native coronary artery without angina pectoris; J44.9 Chronic obstructive pulmonary disease, unspecified; E11.9 Type 2 diabetes mellitus without complications
CPT/HCPCS: 93306

== ENCOUNTER → 2024-02-08 | Outpatient (CLI) | payer MEDICARE | END | disposition home or self-care (01) | LOC: RT 09:31 | PROVIDERS: ATTEND Specialist | DX: J44.9 Chronic obstructive pulmonary disease, unspecified (principal); R06.02 Shortness of breath | CPT/HCPCS: 94010 ==